=== PATIENT | male | born 1990 | race Asian ===

== ENCOUNTER 2018-06-22 15:05 | Emergency (ER) | payer SELFPAY ==
[~2018-06-22] VITALS: Ht 175.3 cm; Wt 59.0 kg
--- NOTE | 2018-06-22 15:30 | NUR ---
TASK RN: PT TO ROOM FROM LOBBY
[2018-06-22 15:46] LABS: BASOPHILS # (AUTO) 0.06 x10^3/uL (0-0.1); BASOPHILS % (AUTO) 1 % (0-1); EOSINOPHILS # (AUTO) 0.01 x10^3/uL (0-0.4); EOSINOPHILS % (AUTO) 0 % (1-7); LYMPHOCYTES # (AUTO) 1.38 x10^3/uL (1-3.4); LYMPHOCYTES % (AUTO) 15 % (22-44); MD NO; MEAN CORPUSCULAR HEMOGLOBIN 30.5 pg (27.5-34.5); MEAN CORPUSCULAR HGB CONC 34.4 g/dL (33.2-36.2); MEAN CORPUSCULAR VOLUME 88.6 fL (81-97); MEAN PLATELET VOLUME 8.5 fL (7.4-10.4); MONOCYTES # (AUTO) 0.25 x10^3/uL (0.2-0.8); MONOCYTES % (AUTO) 3 % (2-9); NEUTROPHILS % (AUTO) 82 % (42-75); PLATELET COUNT 274 x10^3/uL (130-400); RED BLOOD COUNT 5.39 x10^6/uL (4.38-5.82); RED CELL DISTRIBUTION WIDTH 13.5 % (9.4-14.8)
--- NOTE | 2018-06-22 15:50 | NUR ---
PT. ARRIVED BY [facility] WITH C/O FEELING SOB. PT. RETURNS FROM XRAY. CP MONITOR IN PLACE. PT. WAS GIVEN BLANKETS FOR WARMTH. PT.'S VITALS ARE STABLE. SATS ARE 96% ON ROOM AIR. PT. HAS THE SIDERAILS UP X 2 WITH THE CALL LIGHT IN PLACE.
[2018-06-22 15:58] LABS: ALANINE AMINOTRANSFERASE 22 U/L (12-78); ALBUMIN 4.2 g/dL (3.4-5.0); ANION GAP 7 mmol/L (5-15); CHLORIDE 107 mmol/L (98-107); CREATININE 0.79 mg/dL (0.7-1.3)
[2018-06-22 16:00] LABS: ALKALINE PHOSPHATASE 92 U/L (45-117); BILIRUBIN,TOTAL 0.7 mg/dL (0.2-1.0); TOTAL PROTEIN 7.8 g/dL (6.4-8.2)
[2018-06-22] MEDS ORDERED: ONDANSETRON ODT 4 MG PO ONE (16:30)
[2018-06-22] MEDS ORDERED: DEXAMETHASONE 4 MG/ML, 1ML PO ONE (16:30)
[2018-06-22] MEDS ORDERED: DEXAMETHASONE 4 MG TABLET ONE (17:02)
[2018-06-22] MEDS ORDERED: ONDANSETRON ODT 4 MG ONE (17:02)
[2018-06-22 17:07] VITALS: BP 125/79
--- NOTE | 2018-06-22 17:08 | NUR ---
REPORT FROM NISA ECKERT, ASSUME CARE OF PT AT THIS TIME. PT GIVEN MEDS PER ERP ORDER, VSS/UPDATED IN COMPUTER. PT TAKING PO FLUID WELL.
== END 2018-06-22 17:32 | disposition home or self-care (01) ==
LOC: ED 17:26
DX: K64.4 Residual hemorrhoidal skin tags (principal); B34.9 Viral infection, unspecified; Z76.0 Encounter for issue of repeat prescription; J45.909 Unspecified asthma, uncomplicated
CPT/HCPCS: 36415; 71046; 80053; 85025; 93005; 99284; J1100; Q0162